=== PATIENT | male | born 1940 | race Caucasian/White ===

== ENCOUNTER 2024-05-17 11:23 | Emergency (ER) | payer OTHER ==
[2024-05-17 13:05] LABS: BASOPHILS ABSOLUTE AUTO 0.07 K/uL (0.00-0.10); BASOPHILS PERCENT AUTO 0.9 % (0.1-1.3); EOSINOPHILS ABSOLUTE AUTO 0.38 K/uL (0.00-0.40); EOSINOPHILS PERCENT AUTO 4.7 % (0.0-5.4); HEMATOCRIT 40.4 % (38.4-49.7); HEMOGLOBIN 14.4 g/dL (12.9-16.9); IMMATURE GRAN ABSOLUTE AUTO 0.08 K/uL (0.00-0.23); LYMPHOCYTES ABSOLUTE AUTO 1.46 K/uL (0.8-3.3); LYMPHOCYTES PERCENT AUTO 18.2 % (11.4-47.7); MEAN CORPUSCULAR HEMOGLOBIN 30.6 pg (31.6-35.5); MEAN CORPUSCULAR HGB CONC 35.6 g/dL (31.6-35.5); MEAN CORPUSCULAR VOLUME 85.8 fL (81.4-99.0); MONOCYTES ABSOLUTE AUTO 0.83 K/uL (0.20-0.90); MONOCYTES PERCENT AUTO 10.4 % (3.3-12.6); NEUTROPHILS ABSOLUTE AUTO 5.19 K/uL (1.0-7.6); NEUTROPHILS PERCENT AUTO 64.8 % (40.0-78.1); PLATELET COUNT,PLT 190 K/uL (130-375); RED BLOOD CELL COUNT 4.71 M/uL (4.14-5.76)
[2024-05-17 13:40] LABS: A/G RATIO 1.1 (1.2-2.2); ALANINE AMINOTRANSFERASE,ALT 30 U/L (12-78); ALBUMIN 3.5 g/dL (3.4-5.0); ALKALINE PHOSPHATASE 97 U/L (46-116); ASPARTATE AMNIOTRANSFERASE,AST 22 U/L (15-37); BILIRUBIN TOTAL 0.4 mg/dL (0.2-1.0); BLOOD UREA NITROGEN,BUN 13 mg/dL (7-18); CALCIUM 8.8 mg/dL (8.5-10.1); CARBON DIOXIDE,CO2 30 mmol/L (21-32); CHLORIDE,CL 101 mmol/L (100-108); CREATININE 0.9 mg/dL (0.8-1.3); ESTIMATED GFR 85 mL/min (>60); GLUCOSE RANDOM 98 mg/dL (74-106); PRO B-TYPE NATRIUR PEPT,BNPPRO 174 pg/mL (5-450); PROTEIN TOTAL,TP 6.7 g/dL (6.4-8.2); SODIUM,NA 137 mmol/L (140-148)
[2024-05-17 13:45] LABS: TROPONIN I HIGH SENSITIVITY 148.1 pg/mL (<=60.3)
[2024-05-17 16:16] LABS: INR 1.1; PROTHROMBIN TIME 11.4 sec (9.2-10.6); PTT,PARTIAL THROMBOPLSTIN TIME 28.5 sec (21.8-27.3)
[2024-05-17] MEDS ORDERED: Sodium Chloride 0.9% 10 ML Syringe FLUSH PRN (16:23)
[2024-05-17] MEDS: Aspirin 81 MG Tab.Chew PO ONE (16:25)
[2024-05-17] MEDS: Heparin Sodium 5,000 Units/ML Vial IVPUSH ONE (16:28)
[2024-05-17] MEDS: Heparin Sodium/D5W 25,000 UNITS/500 ML BAG IV SCH (16:29)
== END 2024-05-17 19:26 ==
LOC: JP.ED 11:23
DX: I21.4 Non-ST elevation (NSTEMI) myocardial infarction (principal); Z79.899 Other long term (current) drug therapy; Z95.0 Presence of cardiac pacemaker
CPT/HCPCS: 36415; 71046; 80053; 83605; 83880; 84484; 85025; 85379; 85610; 85730; 93005; 96365; 96366; 99285; A9270; J1644; 93010